=== PATIENT | male | born 2000 | race Hispanic/Latino ===

== ENCOUNTER 2021-01-10 16:25 | Emergency (ER) | payer OTHER ==
[~2021-01-10] VITALS: Ht 162.6 cm; Wt 77.1 kg
[2021-01-10 16:34] VITALS: BP 117/74
[2021-01-10] MEDS ORDERED: ACETAMINOPHEN 500 MG TABLET PO ONE (16:45)
[2021-01-10 16:47] VITALS: BP 113/67
[2021-01-10] MEDS ORDERED: AMOX-429 PO (17:22)
[2021-01-10] MEDS ORDERED: ALBUHFA IH (17:22)
[2021-01-10] MEDS ORDERED: ACET-2247 PO (17:22)
== END 2021-01-10 17:34 ==
LOC: EDH 16:25
DX: U07.1 COVID-19 (principal); Z79.899 Other long term (current) drug therapy
CPT/HCPCS: 71045; 87635; 87804 ×2; 99284; C9803